=== PATIENT | female | born 1940 | race Caucasian/White ===

== ENCOUNTER 2019-09-09 19:49 | Inpatient (IN) ==
[2019-09-10] MEDS ORDERED: Naloxone 0.4 MG/ML INJ IVP PRN (02:48)
[2019-09-10] MEDS ORDERED: *HR* Heparin 5,000 UNIT/ML VIAL IVP PRN ×2 (02:51)
[2019-09-10] MEDS ORDERED: Heparin 25,000 UNIT/250 ML D5W 25,000 UNIT/250 ML IV.SOLN IVC SCH (03:00)
[2019-09-10 04:12] LABS: Basophils # 0.1 K/mcL (0.0-0.2); Basophils % 0.6 %; Eosinophils # 0.1 K/mcL (0.0-0.6); Eosinophils % 1.6 %; Hematocrit 33.7 % (35.3-44.9); Hemoglobin 11.3 g/dL (11.5-15.4); Immature Granulocytes % 0.2 % (0-4); Lymphocytes # 2.6 K/mcL (0.6-4.6); Lymphocytes % 31.9 %; Mean Corpuscular HGB Conc 33.5 g/dL (31.6-35.5); Mean Corpuscular Hemoglobin 34.7 pg (28.0-33.3); Mean Corpuscular Volume 103.4 fL (83.0-100.0); Monocytes # 0.8 K/mcL (0.0-1.3); Monocytes % 9.4 %; Neutrophils # 4.5 K/mcL (1.6-8.9); Platelet Count 173 K/mcL (140-400); Red Blood Count 3.26 M/mcL (3.82-4.97); Red Cell Distribution Width 13.4 % (11.5-14.5); Segmented Neutrophils % 56.3 %; White Blood Count 8.1 K/mcL (4.3-11.1)
[2019-09-10 04:13] LABS: INR 1.2; Prothrombin Time 14.1 Seconds (9.4-12.1)
[2019-09-10 04:25] LABS: Heparin anti-factor XA UFH 1.3 IU/mL (0.30-0.70)
[2019-09-10 04:35] LABS: Troponin I 0.05 ng/mL (< 0.04)
[2019-09-10 04:45] LABS: Albumin/Globulin Ratio 1.4 (1.1-2.2); Bilirubin,Total 0.6 mg/dL (0.3-1.0); Calcium 8.1 mg/dL (8.6-10.3); Globulin 2.2 g/dL (2.4-3.5); Magnesium 1.7 mg/dL (1.6-2.6); Phosphorous 2.7 mg/dL (2.7-4.5); Potassium 3.9 mEq/L (3.5-5.1); Total Protein 5.2 g/dL (6.4-8.9)
[2019-09-10] MEDS ORDERED: 0.9 % Sodium Chloride 1,000 ML IVC SCH (08:30)
[2019-09-10] MEDS ORDERED: Isovue-370 500 ML BOTTLE IVP ONE (11:00)
[2019-09-10] MEDS: Aspirin Enteric Coated 81 MG Tablet PO SCH (12:38)
[2019-09-10] MEDS: lisinopriL 20 MG TABLET PO SCH (12:38)
[2019-09-10] MEDS: *HR* Heparin 5,000 UNIT/ML VIAL SQ SCH (17:00)
[2019-09-10] MEDS: carvediloL 6.25 MG TABLET PO SCH (22:38)
[2019-09-10] MEDS: Acetaminophen 325 MG TABLET PO PRN (23:49)
[2019-09-11 06:43] LABS: BUN/Creatinine Ratio 16 (6-26); Blood Urea Nitrogen 16 mg/dL (8-23); Calcium 7.7 mg/dL (8.6-10.3); Carbon Dioxide 19 mEq/L (23-29); Chloride 111 mEq/L (98-107); Glucose 93 mg/dL (70-105); Osmolality,Calculated 281 (280-300); Potassium 4.4 mEq/L (3.5-5.1); Sodium 135 mEq/L (136-145); eGFR For African Americans > 60 (> 60); eGFR For Non-African Americans 52 (> 60)
[2019-09-11] MEDS: *HR* Heparin 5,000 UNIT/ML VIAL SQ SCH ×2 (06:47→16:59)
[2019-09-11] MEDS: carvediloL 6.25 MG TABLET PO SCH ×2 (08:06→21:43)
[2019-09-11] MEDS: lisinopriL 20 MG TABLET PO SCH (08:06)
[2019-09-11] MEDS: Aspirin Enteric Coated 81 MG Tablet PO SCH (08:06)
[2019-09-11] MEDS: Acetaminophen 325 MG TABLET PO PRN (12:25)
[2019-09-11] MEDS: Ondansetron 4 MG/2 ML VIAL IVP PRN (12:25)
[2019-09-11] MEDS ORDERED: Mag Hydrox/Al Hydrox/Simeth 30 ML UDC PO PRN (16:06)
[2019-09-11 22:25] LABS: Basophils # 0.1 K/mcL (0.0-0.2); Basophils % 0.7 %; Eosinophils # 0.3 K/mcL (0.0-0.6); Hematocrit 39.1 % (35.3-44.9); Hemoglobin 12.3 g/dL (11.5-15.4); Immature Granulocytes % 0.2 % (0-4); Lymphocytes % 37.1 %; Mean Corpuscular HGB Conc 31.5 g/dL (31.6-35.5); Mean Corpuscular Hemoglobin 33.7 pg (28.0-33.3); Mean Corpuscular Volume 107.1 fL (83.0-100.0); Mean Platelet Volume 10.4 fL (9.4-12.4); Monocytes % 12.3 %; Neutrophils # 3.7 K/mcL (1.6-8.9); Platelet Count 207 K/mcL (140-400); Red Blood Count 3.65 M/mcL (3.82-4.97); Red Cell Distribution Width 13.4 % (11.5-14.5); Segmented Neutrophils % 45.7 %; White Blood Count 8.2 K/mcL (4.3-11.1)
[2019-09-12] MEDS: *HR* Heparin 5,000 UNIT/ML VIAL SQ SCH (05:36)
[2019-09-12] MEDS: Acetaminophen 325 MG TABLET PO PRN (05:36)
[2019-09-12 06:00] LABS: Basophils % 0.5 %; Eosinophils # 0.3 K/mcL (0.0-0.6); Eosinophils % 3.4 %; Hematocrit 34.5 % (35.3-44.9); Immature Granulocytes % 0.1 % (0-4); Lymphocytes # 2.8 K/mcL (0.6-4.6); Lymphocytes % 35.6 %; Mean Corpuscular HGB Conc 31.9 g/dL (31.6-35.5); Mean Corpuscular Hemoglobin 33.5 pg (28.0-33.3); Mean Corpuscular Volume 105.2 fL (83.0-100.0); Mean Platelet Volume 10.3 fL (9.4-12.4); Monocytes # 0.8 K/mcL (0.0-1.3); Monocytes % 9.8 %; Platelet Count 164 K/mcL (140-400); Red Blood Count 3.28 M/mcL (3.82-4.97); Red Cell Distribution Width 13.2 % (11.5-14.5); Segmented Neutrophils % 50.6 %; White Blood Count 7.9 K/mcL (4.3-11.1)
[2019-09-12 06:19] LABS: BUN/Creatinine Ratio 14 (6-26); Blood Urea Nitrogen 13 mg/dL (8-23); Calcium 7.8 mg/dL (8.6-10.3); Carbon Dioxide 22 mEq/L (23-29); Chloride 107 mEq/L (98-107); Glucose 97 mg/dL (70-105); Osmolality,Calculated 274 (280-300); Potassium 4.7 mEq/L (3.5-5.1); Sodium 132 mEq/L (136-145); eGFR For African Americans > 60 (> 60); eGFR For Non-African Americans 59 (> 60)
[2019-09-12 08:34] VITALS: BP 102/63
[2019-09-12] MEDS: carvediloL 6.25 MG TABLET PO SCH (09:27)
[2019-09-12] MEDS: Ondansetron 4 MG/2 ML VIAL IVP PRN (09:27)
[2019-09-12] MEDS: Aspirin Enteric Coated 81 MG Tablet PO SCH (09:28)
[2019-09-12] MEDS: lisinopriL 20 MG TABLET PO SCH (09:28)
== END 2019-09-12 13:30 | disposition home or self-care (01) | DRG 683 ==
LOC: 2NENU
PROVIDERS: ADMIT Family Medicine; ATTEND Family Medicine

== ENCOUNTER 2020-08-28 14:24 | Inpatient (IN) ==
[2020-08-28] MEDS ORDERED: Melatonin 3 MG TABLET PO PRN (16:36)
[2020-08-28] MEDS ORDERED: Ondansetron 4 MG/2 ML VIAL IVP PRN (16:36)
[2020-08-28] MEDS ORDERED: *HR* Heparin 5,000 UNIT/ML VIAL IVP PRN ×2 (17:01)
[2020-08-28] MEDS ORDERED: *HR* Heparin 5,000 UNIT/ML VIAL IVP ONE (17:01)
[2020-08-28] MEDS: Heparin 25,000UNIT/250ML 1/2NS 25,000 UNIT/250 ML IV.SOLN IVC SCH ×2 (17:26→18:24)
[2020-08-28] MEDS ORDERED: Perflutren Lipid Microsphere 1.3 ML in 0.9 % Sodium Chloride 8.7 ML IVP PRN ×2 (17:42→22:07)
[2020-08-28] MEDS: carvediloL 6.25 MG TABLET PO SCH (17:47)
[2020-08-28 18:57] LABS: Hematocrit 45.9 % (35.3-44.9); Hemoglobin 15.4 g/dL (11.5-15.4); Mean Corpuscular HGB Conc 33.6 g/dL (31.6-35.5); Mean Corpuscular Hemoglobin 32.6 pg (28.0-33.3); Mean Platelet Volume 10.8 fL (9.4-12.4); Platelet Count 155 K/mcL (140-400); Red Blood Count 4.73 M/mcL (3.82-4.97); Red Cell Distribution Width 13.2 % (11.5-14.5); White Blood Count 3.7 K/mcL (4.3-11.1)
[2020-08-28 19:02] LABS: INR 1.4; Prothrombin Time 16.5 Seconds (9.4-12.1)
[2020-08-28 19:11] LABS: Heparin anti-factor XA UFH 1.5 IU/mL (0.30-0.70)
[2020-08-28] MEDS: Sennosides/Docusate Sodium TABLET PO SCH (20:29)
[2020-08-29 03:31] LABS: Hematocrit 41.2 % (35.3-44.9); Hemoglobin 13.9 g/dL (11.5-15.4); Mean Corpuscular HGB Conc 33.7 g/dL (31.6-35.5); Mean Corpuscular Hemoglobin 32.1 pg (28.0-33.3); Mean Corpuscular Volume 95.2 fL (83.0-100.0); Mean Platelet Volume 10.9 fL (9.4-12.4); Platelet Count 154 K/mcL (140-400); Red Blood Count 4.33 M/mcL (3.82-4.97); Red Cell Distribution Width 13.3 % (11.5-14.5); White Blood Count 4.6 K/mcL (4.3-11.1)
[2020-08-29 03:40] LABS: INR 1.4; Prothrombin Time 15.9 Seconds (9.4-12.1)
[2020-08-29 04:07] LABS: Albumin 3.3 g/dL (3.5-5.7); Albumin/Globulin Ratio 1.2 (1.1-2.2); Bilirubin,Total 0.4 mg/dL (0.3-1.0); Calcium 8.6 mg/dL (8.6-10.3); Globulin 2.8 g/dL (2.4-3.5); Magnesium 1.8 mg/dL (1.6-2.6); Phosphorous 2.6 mg/dL (2.7-4.5); Potassium 4.4 mEq/L (3.5-5.1); Total Protein 6.1 g/dL (6.4-8.9); Troponin I 0.72 ng/mL (< 0.04)
[2020-08-29] MEDS: carvediloL 6.25 MG TABLET PO SCH ×2 (09:20→16:21)
[2020-08-29] MEDS: Sennosides/Docusate Sodium TABLET PO SCH ×2 (09:20→22:18)
[2020-08-29] MEDS: Aspirin Enteric Coated 81 MG Tablet PO SCH (09:20)
[2020-08-29] MEDS: Apixaban 5 MG TABLET PO SCH ×2 (14:35→22:18)
[2020-08-30 08:33] LABS: Basophils # 0.1 K/mcL (0.0-0.2); Basophils % 0.4 %; Eosinophils # 0.3 K/mcL (0.0-0.6); Eosinophils % 2.1 %; Hematocrit 40.8 % (35.3-44.9); Hemoglobin 13.6 g/dL (11.5-15.4); Immature Granulocytes % 0.4 % (0-4); Lymphocytes % 34.5 %; Mean Corpuscular HGB Conc 33.3 g/dL (31.6-35.5); Mean Corpuscular Hemoglobin 32.4 pg (28.0-33.3); Mean Corpuscular Volume 97.1 fL (83.0-100.0); Mean Platelet Volume 10.8 fL (9.4-12.4); Monocytes % 8.6 %; Neutrophils # 6.3 K/mcL (1.6-8.9); Platelet Count 178 K/mcL (140-400); Red Cell Distribution Width 13.6 % (11.5-14.5)
[2020-08-30 08:35] LABS: White Blood Count 11.7 K/mcL (4.3-11.1)
[2020-08-30] MEDS: Aspirin Enteric Coated 81 MG Tablet PO SCH (09:15)
[2020-08-30] MEDS: Sennosides/Docusate Sodium TABLET PO SCH (09:16)
[2020-08-30] MEDS: Apixaban 5 MG TABLET PO SCH ×2 (09:16→21:38)
[2020-08-30] MEDS: carvediloL 6.25 MG TABLET PO SCH ×2 (09:16→18:07)
[2020-08-30 09:38] LABS: Calcium 8.1 mg/dL (8.6-10.3); Magnesium 1.9 mg/dL (1.6-2.6); Potassium 4.3 mEq/L (3.5-5.1); Troponin I 0.59 ng/mL (< 0.04)
[2020-08-30] MEDS ORDERED: Ringers Solution, Lactated 1,000 ML IVC ONE (12:45)
[2020-08-30] MEDS ORDERED: Fluconazole 200 MG/100 ML 100 MG/50 ML BAG IVPB SCH (15:30)
[2020-08-31 02:58] LABS: Basophils # 0.1 K/mcL (0.0-0.2); Basophils % 0.8 %; Eosinophils # 0.7 K/mcL (0.0-0.6); Eosinophils % 6.7 %; Hematocrit 39.2 % (35.3-44.9); Hemoglobin 12.9 g/dL (11.5-15.4); Immature Granulocytes % 0.4 % (0-4); Lymphocytes % 35.9 %; Mean Corpuscular HGB Conc 32.9 g/dL (31.6-35.5); Mean Corpuscular Volume 97.3 fL (83.0-100.0); Mean Platelet Volume 10.8 fL (9.4-12.4); Monocytes # 1.3 K/mcL (0.0-1.3); Monocytes % 11.3 %; Platelet Count 173 K/mcL (140-400); Red Blood Count 4.03 M/mcL (3.82-4.97); Red Cell Distribution Width 13.2 % (11.5-14.5); Segmented Neutrophils % 44.9 %
[2020-08-31 03:16] LABS: BUN/Creatinine Ratio 27 (6-26); Blood Urea Nitrogen 28 mg/dL (8-23); Calcium 8.2 mg/dL (8.6-10.3); Carbon Dioxide 22 mEq/L (23-29); Chloride 102 mEq/L (98-107); Glucose 98 mg/dL (70-105); Magnesium 2.2 mg/dL (1.6-2.6); Osmolality,Calculated 277 (280-300); Potassium 4.4 mEq/L (3.5-5.1); Sodium 131 mEq/L (136-145); eGFR For African Americans > 60 (> 60); eGFR For Non-African Americans 51 (> 60)
[2020-08-31] MEDS: Aspirin Enteric Coated 81 MG Tablet PO SCH (09:05)
[2020-08-31] MEDS: carvediloL 6.25 MG TABLET PO SCH ×2 (09:06→16:53)
[2020-08-31] MEDS: Apixaban 5 MG TABLET PO SCH (09:06)
[2020-08-31] MEDS ORDERED: SODIUM CHLORIDE/NAHCO3/KCL/PEG 4,000 ML SOLN.RECON PO SCH (17:00)
[2020-08-31] MEDS: Acetaminophen 325 MG TABLET PO PRN (21:12)
[2020-09-01 07:01] LABS: Basophils # 0.1 K/mcL (0.0-0.2); Basophils % 0.8 %; Eosinophils % 10.7 %; Immature Granulocytes % 0.3 % (0-4); Lymphocytes # 2.2 K/mcL (0.6-4.6); Lymphocytes % 23.4 %; Mean Corpuscular HGB Conc 33.3 g/dL (31.6-35.5); Mean Corpuscular Hemoglobin 32.3 pg (28.0-33.3); Mean Platelet Volume 10.6 fL (9.4-12.4); Monocytes # 1.3 K/mcL (0.0-1.3); Monocytes % 13.9 %; Neutrophils # 4.7 K/mcL (1.6-8.9); Platelet Count 199 K/mcL (140-400); Red Blood Count 4.33 M/mcL (3.82-4.97); Red Cell Distribution Width 13.2 % (11.5-14.5); Segmented Neutrophils % 50.9 %; White Blood Count 9.2 K/mcL (4.3-11.1)
[2020-09-01 07:20] LABS: BUN/Creatinine Ratio 19 (6-26); Blood Urea Nitrogen 19 mg/dL (8-23); Calcium 8.4 mg/dL (8.6-10.3); Carbon Dioxide 24 mEq/L (23-29); Chloride 104 mEq/L (98-107); Glucose 113 mg/dL (70-105); Osmolality,Calculated 281 (280-300); Potassium 4.4 mEq/L (3.5-5.1); Sodium 134 mEq/L (136-145); eGFR For African Americans > 60 (> 60); eGFR For Non-African Americans 53 (> 60)
[2020-09-01] MEDS: Aspirin Enteric Coated 81 MG Tablet PO SCH (08:03)
[2020-09-01] MEDS: carvediloL 6.25 MG TABLET PO SCH ×2 (08:03→15:38)
[2020-09-01] MEDS: Acetaminophen 325 MG TABLET PO PRN ×2 (08:04→15:38)
[2020-09-01] MEDS ORDERED: EPHEDrine 50 MG/ML VIAL ONE (09:05)
[2020-09-01] MEDS ORDERED: Lidocaine -MPF 2% 5 ML VIAL ONE (09:16)
[2020-09-01] MEDS: Pantoprazole 40 MG VIAL IVP SCH (15:38)
[2020-09-01] MEDS: Apixaban 5 MG TABLET PO SCH (21:46)
[2020-09-02 02:44] LABS: Basophils # 0.1 K/mcL (0.0-0.2); Basophils % 0.6 %; Eosinophils # 0.9 K/mcL (0.0-0.6); Eosinophils % 9.8 %; Hematocrit 40.2 % (35.3-44.9); Hemoglobin 13.5 g/dL (11.5-15.4); Immature Granulocytes % 0.3 % (0-4); Lymphocytes # 1.9 K/mcL (0.6-4.6); Mean Corpuscular HGB Conc 33.6 g/dL (31.6-35.5); Mean Corpuscular Hemoglobin 32.5 pg (28.0-33.3); Mean Corpuscular Volume 96.6 fL (83.0-100.0); Mean Platelet Volume 10.8 fL (9.4-12.4); Monocytes # 1.1 K/mcL (0.0-1.3); Monocytes % 12.5 %; Platelet Count 182 K/mcL (140-400); Red Blood Count 4.16 M/mcL (3.82-4.97); Red Cell Distribution Width 13.2 % (11.5-14.5); Segmented Neutrophils % 55.8 %; White Blood Count 8.9 K/mcL (4.3-11.1)
[2020-09-02 03:03] LABS: BUN/Creatinine Ratio 16 (6-26); Blood Urea Nitrogen 17 mg/dL (8-23); Calcium 8.1 mg/dL (8.6-10.3); Carbon Dioxide 24 mEq/L (23-29); Chloride 102 mEq/L (98-107); Glucose 94 mg/dL (70-105); Magnesium 1.8 mg/dL (1.6-2.6); Osmolality,Calculated 273 (280-300); Potassium 4.6 mEq/L (3.5-5.1); Sodium 131 mEq/L (136-145); eGFR For African Americans > 60 (> 60); eGFR For Non-African Americans 50 (> 60)
[2020-09-02] MEDS ORDERED: polyethylene glycoL 3350 17 GM POWD.PACK PO SCH (09:00)
[2020-09-02 11:20] VITALS: BP 132/63
[2020-09-02] MEDS: carvediloL 6.25 MG TABLET PO SCH (11:41)
[2020-09-02] MEDS: Apixaban 5 MG TABLET PO SCH (11:41)
[2020-09-02] MEDS: Aspirin Enteric Coated 81 MG Tablet PO SCH (11:42)
[2020-09-02] MEDS: Pantoprazole 40 MG VIAL IVP SCH (11:56)
[2020-09-02 13:30] LABS: Adenovirus Not Detected (Not Detect); Bordetella Pertussis Not Detected (Not Detect); Chlamydophila pneumoniae Not Detected (Not Detect); Coronavirus 229E Not Detected (Not Detect); Coronavirus HKU1 Not Detected (Not Detect); Coronavirus NL63 Not Detected (Not Detect); Coronavirus OC43 Not Detected (Not Detect); Human Metapneumovirus Not Detected (Not Detect); Human Rhinovirus/Enterovirus DETECTED (Not Detect); Influenza A Subtype 2009 H1 Not Detected (Not Detect); Influenza B Not Detected (Not Detect); Mycoplasma pneumoniae Not Detected (Not Detect); Parainfluenza Virus 1 Not Detected (Not Detect); Parainfluenza Virus 2 Not Detected (Not Detect); Parainfluenza Virus 3 Not Detected (Not Detect); Parainfluenza Virus 4 Not Detected (Not Detect); Respiratory Syncytial Virus Not Detected (Not Detect); SARS-CoV-2 Not Detected (Not Detect)
[2020-09-05] MEDS ORDERED: Apixaban 5 MG TABLET PO SCH (09:00)
[2020-09-06] MEDS ORDERED: Apixaban 5 MG TABLET PO SCH ×2 (09:00→21:00)
== END 2020-09-02 16:40 | DRG 175 ==
LOC: 2NENU → SUATTDRO 17:07
PROVIDERS: ADMIT Internal Medicine; ATTEND Pharmacist
PROC: ENDOEBX (2020-09-01 09:20)

== ENCOUNTER 2020-09-03 03:20 | Observation (INO) ==
[2020-09-03] MEDS ORDERED: Isovue-370 500 ML BOTTLE IVP ONE (03:36)
[2020-09-03 04:26] LABS: INR 4.1
[2020-09-03 04:27] LABS: Prothrombin Time 45.5 Seconds (9.4-12.1)
[2020-09-03 08:13] LABS: Basophils # 0.1 K/mcL (0.0-0.2); Eosinophils # 0.8 K/mcL (0.0-0.6); Immature Granulocytes % 0.2 % (0-4); Lymphocytes # 2.1 K/mcL (0.6-4.6); Lymphocytes % 25.2 %; Mean Corpuscular HGB Conc 34.2 g/dL (31.6-35.5); Mean Corpuscular Hemoglobin 32.9 pg (28.0-33.3); Mean Corpuscular Volume 96.2 fL (83.0-100.0); Mean Platelet Volume 10.6 fL (9.4-12.4); Monocytes # 1.2 K/mcL (0.0-1.3); Monocytes % 13.9 %; Neutrophils # 4.1 K/mcL (1.6-8.9); Platelet Count 202 K/mcL (140-400); Red Blood Count 3.95 M/mcL (3.82-4.97); Red Cell Distribution Width 12.9 % (11.5-14.5); Segmented Neutrophils % 49.7 %; White Blood Count 8.3 K/mcL (4.3-11.1)
[2020-09-03] MEDS ORDERED: Ondansetron ODT 4 MG TAB.RAPDIS SL PRN (09:32)
[2020-09-03] MEDS ORDERED: Acetaminophen 325 MG TABLET PO PRN (09:32)
[2020-09-03] MEDS ORDERED: Naloxone 0.4 MG/ML INJ IVP PRN (09:32)
[2020-09-03] MEDS ORDERED: Heparin 25,000UNIT/250ML 1/2NS 25,000 UNIT/250 ML IV.SOLN IVC SCH ×2 (11:15→18:00)
[2020-09-03 12:51] LABS: Hematocrit 43.7 % (35.3-44.9); Hematocrit 44.1 % (35.3-44.9); Hemoglobin 14.8 g/dL (11.5-15.4); Mean Corpuscular HGB Conc 33.1 g/dL (31.6-35.5); Mean Corpuscular Hemoglobin 31.7 pg (28.0-33.3); Mean Corpuscular Volume 95.9 fL (83.0-100.0); Mean Platelet Volume 10.3 fL (9.4-12.4); Platelet Count 195 K/mcL (140-400); White Blood Count 9.5 K/mcL (4.3-11.1)
[2020-09-03 12:53] LABS: Hemoglobin 14.6 g/dL (11.5-15.4)
[2020-09-03] MEDS ORDERED: *HR* Heparin 5,000 UNIT/ML VIAL IVP PRN ×2 (18:00)
[2020-09-03] MEDS: Heparin 25,000UNIT/250ML 1/2NS 25,000 UNIT/250 ML IV.SOLN IVC SCH (18:55)
[2020-09-03 19:01] LABS: Hemoglobin 12.4 g/dL (11.5-15.4)
[2020-09-03 19:12] LABS: Heparin anti-factor XA UFH > 2.00 IU/mL (0.30-0.70)
[2020-09-03 19:39] LABS: Activated Partial Thrombo Time 31.3 Seconds (26.0-36.0)
[2020-09-03] MEDS ORDERED: *HR* Promethazine 25 MG/ML VIAL IM ONE (21:30)
[2020-09-04 05:02] LABS: Hematocrit 37.7 % (35.3-44.9); Hemoglobin 12.3 g/dL (11.5-15.4); Mean Corpuscular HGB Conc 32.6 g/dL (31.6-35.5); Mean Corpuscular Hemoglobin 31.8 pg (28.0-33.3); Mean Corpuscular Volume 97.4 fL (83.0-100.0); Mean Platelet Volume 10.8 fL (9.4-12.4); Platelet Count 180 K/mcL (140-400); Red Blood Count 3.87 M/mcL (3.82-4.97); White Blood Count 9.1 K/mcL (4.3-11.1)
[2020-09-04 05:09] LABS: INR 2.4; Prothrombin Time 26.8 Seconds (9.4-12.1)
[2020-09-04 05:19] LABS: BUN/Creatinine Ratio 13 (6-26); Blood Urea Nitrogen 13 mg/dL (8-23); Calcium 7.8 mg/dL (8.6-10.3); Carbon Dioxide 21 mEq/L (23-29); Chloride 99 mEq/L (98-107); Glucose 106 mg/dL (70-105); Magnesium 1.7 mg/dL (1.6-2.6); Osmolality,Calculated 267 (280-300); Potassium 4.4 mEq/L (3.5-5.1); Sodium 128 mEq/L (136-145); eGFR For African Americans > 60 (> 60); eGFR For Non-African Americans 54 (> 60)
[2020-09-04 05:26] LABS: Activated Partial Thrombo Time > 360.0 Seconds (26.0-36.0)
[2020-09-04] MEDS: Acetaminophen 325 MG TABLET PO SCH ×2 (14:22→20:36)
[2020-09-04] MEDS: carvediloL 6.25 MG TABLET PO SCH (20:36)
[2020-09-04] MEDS: Heparin 25,000UNIT/250ML 1/2NS 25,000 UNIT/250 ML IV.SOLN IVC SCH (20:37)
[2020-09-05] MEDS: Acetaminophen 325 MG TABLET PO SCH (03:50)
[2020-09-05 06:25] LABS: Basophils # 0.1 K/mcL (0.0-0.2); Basophils % 1.3 %; Eosinophils # 0.8 K/mcL (0.0-0.6); Eosinophils % 10.7 %; Hematocrit 36.5 % (35.3-44.9); Hemoglobin 12.1 g/dL (11.5-15.4); Immature Granulocytes % 0.3 % (0-4); Lymphocytes # 2.9 K/mcL (0.6-4.6); Lymphocytes % 37.9 %; Mean Corpuscular HGB Conc 33.2 g/dL (31.6-35.5); Mean Corpuscular Hemoglobin 32.4 pg (28.0-33.3); Mean Corpuscular Volume 97.6 fL (83.0-100.0); Mean Platelet Volume 10.3 fL (9.4-12.4); Monocytes # 1.1 K/mcL (0.0-1.3); Neutrophils # 2.7 K/mcL (1.6-8.9); Platelet Count 212 K/mcL (140-400); Red Blood Count 3.74 M/mcL (3.82-4.97); Red Cell Distribution Width 13.2 % (11.5-14.5); Segmented Neutrophils % 34.8 %; White Blood Count 7.6 K/mcL (4.3-11.1)
[2020-09-05 06:40] LABS: Calcium 8.2 mg/dL (8.6-10.3); INR 1.6; Potassium 4.9 mEq/L (3.5-5.1); Prothrombin Time 17.7 Seconds (9.4-12.1)
[2020-09-05 06:44] LABS: Activated Partial Thrombo Time 90.9 Seconds (26.0-36.0)
[2020-09-05] MEDS: carvediloL 6.25 MG TABLET PO SCH (08:13)
[2020-09-05] MEDS ORDERED: lisinopriL 10 MG TABLET PO SCH (09:00)
[2020-09-05] MEDS ORDERED: Apixaban 5 MG TABLET PO SCH (09:00)
[2020-09-05 10:53] VITALS: BP 115/71
== END 2020-09-05 11:29 ==
LOC: EMEROOARM 03:20 → 2ANU 03:20 → SUATTDRO 09:27 → 2ANU 10:36
PROVIDERS: ADMIT Internal Medicine; ATTEND Internal Medicine